=== PATIENT | female | born 1985 | race Caucasian/White ===

== ENCOUNTER 2017-01-18 17:18 | Inpatient (IN) | payer BC ==
[~2017-01-18] VITALS: Ht 165.1 cm; Wt 87.3 kg
[~2017-01-18 17:18] MED LIST: IBUP-1222 PO; OXYC-302 PO
[2017-01-18 18:23] VITALS: BP 115/80
[2017-01-18] MEDS: SODIUM CHLORIDE FLUSH 3ML SYRINGE IVF SCH (20:20)
[2017-01-18] MEDS ORDERED: BETAMETHASONE 6 MG/ML, 5ML IM ONE ×2 (20:22→20:30)
[2017-01-19] MEDS ORDERED: ZOLPIDEM 5MG TABLET ONE ×2 (00:33→21:21)
[2017-01-19] MEDS: ZOLPIDEM 5MG TABLET PO PRN ×2 (00:37→21:23)
[2017-01-19] MEDS ORDERED: BETAMETHASONE 6 MG/ML, 5ML IM ONE (20:30)
[2017-01-20] MEDS: SODIUM CHLORIDE FLUSH 3ML SYRINGE IVF SCH ×3 (09:00→21:00)
[2017-01-20] MEDS ORDERED: PRENATAL VIT/IRON/FA 1 EACH TABLET PO SCH (09:00)
[2017-01-20] MEDS ORDERED: DOCUSATE 100 MG CAPSULE ONE (10:14)
[2017-01-20] MEDS: DOCUSATE 100 MG CAPSULE PO SCH ×2 (10:16→21:00)
[2017-01-20] MEDS ORDERED: ZOLPIDEM 5MG TABLET ONE (20:49)
[2017-01-20] MEDS: PRENATAL VIT/IRON/FA 1 EACH TABLET HOMEMEDPO SCH (20:50)
[2017-01-20] MEDS: ZOLPIDEM 5MG TABLET PO PRN (20:52)
[2017-01-21] MEDS ORDERED: DOCUSATE 100 MG CAPSULE ONE (09:53)
[2017-01-21] MEDS: DOCUSATE 100 MG CAPSULE PO SCH (09:54)
[2017-01-21] MEDS: SODIUM CHLORIDE FLUSH 3ML SYRINGE IVF SCH ×2 (09:55→21:00)
[2017-01-21 20:09] VITALS: BP 126/58
[2017-01-21] MEDS ORDERED: ZOLPIDEM 5MG TABLET ONE (23:13)
[2017-01-21] MEDS: ZOLPIDEM 5MG TABLET PO PRN (23:23)
[2017-01-22] MEDS: DOCUSATE 100 MG CAPSULE PO SCH ×3 (09:00→21:00)
[2017-01-22] MEDS: PRENATAL VIT/IRON/FA 1 EACH TABLET HOMEMEDPO SCH (09:00)
[2017-01-22] MEDS: SODIUM CHLORIDE FLUSH 3ML SYRINGE IVF SCH ×3 (09:00→21:00)
[2017-01-22] MEDS ORDERED: DOCUSATE 100 MG CAPSULE ONE (10:32)
[2017-01-22 20:13] LABS: HEMATOCRIT 35.2 % (34.6-47.8); HEMOGLOBIN 11.8 g/dL (11.7-16.4); WHITE BLOOD COUNT 11.7 x10^3/uL (3.4-10)
[2017-01-22] MEDS ORDERED: DIPHENHYDRAMINE 25 MG CAPSULE ONE (21:37)
[2017-01-22] MEDS: DIPHENHYDRAMINE 25 MG CAPSULE PO PRN (21:42)
[2017-01-23] MEDS ORDERED: PRENATAL VIT/IRON/FA 1 EACH TABLET ONE (07:42)
[2017-01-23] MEDS: DOCUSATE 100 MG CAPSULE PO SCH (09:23)
[2017-01-23] MEDS: SODIUM CHLORIDE FLUSH 3ML SYRINGE IVF SCH (09:23)
[2017-01-23] MEDS: PRENATAL VIT/IRON/FA 1 EACH TABLET HOMEMEDPO SCH (09:23)
[2017-01-23 20:54] VITALS: BP 118/69
[2017-01-23] MEDS ORDERED: DIPHENHYDRAMINE 25 MG CAPSULE ONE (21:14)
[2017-01-23] MEDS: DIPHENHYDRAMINE 25 MG CAPSULE PO PRN (21:20)
[2017-01-24] MEDS: DOCUSATE 100 MG CAPSULE PO SCH ×3 (09:00→21:00)
[2017-01-24] MEDS: SODIUM CHLORIDE FLUSH 3ML SYRINGE IVF SCH ×3 (09:00→21:00)
[2017-01-24] MEDS: PRENATAL VIT/IRON/FA 1 EACH TABLET HOMEMEDPO SCH (09:00)
[2017-01-24] MEDS ORDERED: NEWBORN KIT ONE (13:21)
[2017-01-24] MEDS ORDERED: DIPHENHYDRAMINE 25 MG CAPSULE ONE (21:30)
[2017-01-24] MEDS: DIPHENHYDRAMINE 25 MG CAPSULE PO PRN (21:44)
[2017-01-24 23:07] VITALS: BP 120/77
[2017-01-25] MEDS: OXYTOCIN 30U/ 0.9% NaCL 500ML 500 ML IV SCH ×3 (02:46→22:46)
[2017-01-25] MEDS: LACTATED RINGERS 1,000 ML IV SCH ×6 (02:46→21:36)
[2017-01-25] MEDS ORDERED: ONDANSETRON 2MG/ML, 2ML IVPush ONE (03:00)
[2017-01-25] MEDS ORDERED: CALCIUM CARBONATE 500 MG TAB.CHEW PO PRN ×2 (03:00→09:30)
[2017-01-25] MEDS ORDERED: CEFAZOLIN PMX 1GM/50ML 50 ML IVPB ONE (03:00)
[2017-01-25] MEDS ORDERED: METOCLOPRAMIDE 5 MG/ML, 2ML IV ONE (03:00)
[2017-01-25] MEDS ORDERED: SODIUM CITRATE/CITRIC ACID 30 ML UDC PO ONE (03:00)
[2017-01-25] MEDS ORDERED: LACTATED RINGERS 1,000 ML IVBOLUS ONE (03:00)
[2017-01-25] MEDS ORDERED: morphine SULFATE/PF 1 MG/ML, 10ML ONE (08:43)
[2017-01-25] MEDS: SODIUM CHLORIDE FLUSH 3ML SYRINGE IVF SCH (09:00)
[2017-01-25] MEDS: PRENATAL VIT/IRON/FA 1 EACH TABLET HOMEMEDPO SCH (09:00)
[2017-01-25] MEDS: DOCUSATE 100 MG CAPSULE PO SCH (09:00)
[2017-01-25] MEDS ORDERED: METOCLOPRAMIDE 5 MG/ML, 2ML ONE (09:02)
[2017-01-25] MEDS ORDERED: SODIUM CITRATE/CITRIC ACID 30 ML UDC ONE (09:02)
[2017-01-25] MEDS ORDERED: OXYTOCIN 30U/ 0.9% NaCL 500ML 500 ML ONE (09:02)
[2017-01-25] MEDS ORDERED: OXYTOCIN 30U/ 0.9% NaCL 500ML 500 ML IV SCH (09:30)
[2017-01-25] MEDS ORDERED: ONDANSETRON 2MG/ML, 2ML IV PRN (09:30)
[2017-01-25] MEDS ORDERED: MEPERIDINE/PF 50 MG/ML IM PRN (09:30)
[2017-01-25] MEDS ORDERED: morphine SULFATE 10 MG/ML, 1ML IVPush PRN ×2 (09:30)
[2017-01-25] MEDS: PRENATAL VIT/IRON/FA 1 EACH TABLET PO SCH (09:30)
[2017-01-25] MEDS ORDERED: MISOPROSTOL 200 MCG TABLET PR PRN (09:30)
[2017-01-25] MEDS ORDERED: LACTATED RINGERS 1,000 ML IV SCH (09:30)
[2017-01-25] MEDS ORDERED: CEFAZOLIN 1,000 MG ONE (09:30)
[2017-01-25] MEDS ORDERED: OXYcodone/APAP 5/325MG TABLET ONE (12:03)
[2017-01-25] MEDS: OXYcodone/APAP 5/325MG TABLET PO PRN ×2 (12:06→21:37)
[2017-01-25 12:45] VITALS: BP 130/84
[2017-01-25] MEDS ORDERED: HYDROmorphone 1 MG/ML, 1ML IVPush PRN (13:30)
[2017-01-25] MEDS ORDERED: DIPHENHYDRAMINE 50 MG/ML, 1ML IV PRN (13:30)
[2017-01-25] MEDS ORDERED: KETOROLAC 30 MG/1 ML IVPush SCH (13:30)
[2017-01-25] MEDS ORDERED: OXYcodone/APAP 5/325MG TABLET PO PRN (13:30)
[2017-01-25] MEDS ORDERED: NALOXONE 0.4 MG/ML, 1ML IV PRN (13:30)
[2017-01-25] MEDS ORDERED: ONDANSETRON 2MG/ML, 2ML IVPush PRN (13:30)
[2017-01-25] MEDS: KETOROLAC 30 MG/1 ML IV SCH ×2 (15:24→21:38)
[2017-01-25 17:23] VITALS: BP 108/69
[2017-01-25 18:36] LABS: HEMATOCRIT 36.2 % (34.6-47.8); WHITE BLOOD COUNT 15.1 x10^3/uL (3.4-10)
[2017-01-25 18:59] LABS: DIFF TOTAL CELLS COUNTED 100 CELL DIFF
[2017-01-25 19:02] LABS: VERIFY COUNTS? YES
[2017-01-25 19:15] VITALS: BP 117/76
[2017-01-26 00:01] VITALS: BP 92/60
[2017-01-26] MEDS: LACTATED RINGERS 1,000 ML IV SCH ×2 (01:30→04:44)
[2017-01-26] MEDS: KETOROLAC 30 MG/1 ML IV SCH ×5 (03:30→21:37)
[2017-01-26] MEDS: OXYcodone/APAP 5/325MG TABLET PO PRN ×4 (04:02→19:22)
[2017-01-26] MEDS: OXYTOCIN 30U/ 0.9% NaCL 500ML 500 ML IV SCH (04:41)
[2017-01-26 06:45] VITALS: BP 95/61
[2017-01-26] MEDS: PRENATAL VIT/IRON/FA 1 EACH TABLET PO SCH (09:00)
[2017-01-26] MEDS: DOCUSATE 100 MG CAPSULE PO PRN ×2 (09:03→19:22)
[2017-01-26 21:15] VITALS: BP 107/68
[2017-01-27] MEDS: OXYcodone/APAP 5/325MG TABLET PO PRN ×5 (00:30→22:14)
[2017-01-27] MEDS: KETOROLAC 30 MG/1 ML IV SCH (04:37)
[2017-01-27] MEDS: OXYTOCIN 30U/ 0.9% NaCL 500ML 500 ML IV SCH (04:46)
[2017-01-27] MEDS: DOCUSATE 100 MG CAPSULE PO PRN ×2 (08:57→22:14)
[2017-01-27] MEDS: SIMETHICONE 80 MG CHEW TAB PO PRN ×2 (08:58→22:14)
[2017-01-27 09:00] VITALS: BP 114/72
[2017-01-27] MEDS: PRENATAL VIT/IRON/FA 1 EACH TABLET PO SCH (09:00)
[2017-01-27] MEDS: IBUPROFEN 600 MG TABLET PO PRN ×2 (12:12→18:15)
[2017-01-27 21:00] VITALS: BP 112/73
[2017-01-28] MEDS: IBUPROFEN 600 MG TABLET PO PRN ×4 (01:00→20:06)
[2017-01-28] MEDS: DOCUSATE 100 MG CAPSULE PO PRN ×2 (07:18→20:06)
[2017-01-28] MEDS: OXYcodone/APAP 5/325MG TABLET PO PRN ×4 (07:18→21:19)
[2017-01-28 08:00] VITALS: BP 113/73
[2017-01-28] MEDS: PRENATAL VIT/IRON/FA 1 EACH TABLET PO SCH (09:00)
[2017-01-28 20:55] VITALS: BP 119/87
[2017-01-29] MEDS: IBUPROFEN 600 MG TABLET PO PRN ×2 (03:41→14:20)
[2017-01-29] MEDS: OXYcodone/APAP 5/325MG TABLET PO PRN (03:41)
[2017-01-29 08:01] VITALS: BP 116/79
[2017-01-29] MEDS: PRENATAL VIT/IRON/FA 1 EACH TABLET PO SCH (09:00)
[2017-01-29] MEDS: DOCUSATE 100 MG CAPSULE PO PRN (10:42)
[2017-01-29] MEDS ORDERED: DOCU-30 PO (12:37)
== END 2017-01-29 17:35 | disposition home or self-care (01) | DRG 765 ==
LOC: LDOP 17:18 → LDIP 20:02 → 2NW 01-25 12:28
PROVIDERS: ADMIT Obstetrics & Gynecology; ATTEND Obstetrics & Gynecology
PROC: 10D00Z1 Extraction of Products of Conception, Low, Open Approach (ICD-10-PCS; principal; 2017-01-25)
DX: O34.211 Maternal care for low transverse scar from previous cesarean delivery (principal); O30.043 Twin pregnancy, dichorionic/diamniotic, third trimester; O24.429 Gestational diabetes mellitus in childbirth, unspecified control; Z37.2 Twins, both liveborn; O43.193 Other malformation of placenta, third trimester; O76 Abnormality in fetal heart rate and rhythm complicating labor and delivery; Z3A.36 36 weeks gestation of pregnancy
CPT/HCPCS: 36415; 76815; 76819; 82803; 82962; 85025; 86850; 86900; 87081; 88307; J0690; J0702; J1885; J2274; J2590; J2765; J7120; Q0163